=== PATIENT | female | born 1990 | race Caucasian/White ===

== ENCOUNTER 2017-10-24 21:43 | Inpatient (IN) | payer MEDICAID ==
[2017-10-25 01:31] LABS: ADD MAN DIFF? NO
[2017-10-25 01:35] LABS: WHITE BLOOD COUNT 14.7 10^3/ul (4.8-10.8)
[2017-10-25 01:35] LABS: BASOPHILS % 0.3 % (0.0-2.0); EOSINOPHILS % 0.1 % (0.0-7.0); HEMATOCRIT 36.3 % (37.0-47.0); HEMOGLOBIN 12.1 g/dl (12.0-16.0); LYMPHOCYTES # 1.8 10^3/ul (0.8-2.9); LYMPHOCYTES % 11.9 % (15.0-51.0); MEAN CORPUSCULAR HGB CONC 33.3 g/dl (32.0-37.0); MEAN CORPUSCULAR VOLUME 93.1 fl (82.0-101.0); MEAN PLATELET VOLUME 9.4 fl (7.4-10.4); MONOCYTE # 0.8 10^3/ul (0.3-0.9); MONOCYTES % 5.2 % (0.0-11.0); NEUTROPHIL # 12.1 10^3/ul (1.6-7.5); NEUTROPHILS % 82.1 % (39.0-77.0); PLATELET COUNT 286 10^3/UL (140-415); RED CELL DISTRIBUTION WIDTH 12.4 % (11.5-14.5)
[2017-10-25] MEDS ORDERED: ONDANSETRON 4 MG INJ ×2 (01:53→06:46)
[2017-10-25 01:54] LABS: ANION GAP 15 (8-16); BLOOD UREA NITROGEN 8 mg/dl (7-20); CALCIUM 9.4 mg/dl (8.4-10.2); CARBON DIOXIDE 26 mmol/L (21-31); CHLORIDE 103 mmol/L (97-110); CREATININE 0.62 mg/dl (0.44-1.00); GLUCOSE 105 mg/dl (70-220); POTASSIUM 4.2 mmol/L (3.5-5.1); SODIUM 140 mmol/L (135-144)
[2017-10-25] MEDS: ONDANSETRON 4 MG INJ IM (02:28)
[2017-10-25] MEDS ORDERED: ACETAMINOPHEN 500 MG TAB PO (03:50)
[2017-10-25] MEDS: CLINDAMYCIN 900 MG/D5W (PMX) 50 ML IVPB ×2 (05:18→07:00)
[2017-10-25] MEDS ORDERED: MIDAZOLAM 1 MG/ML 2 ML INJ (05:20)
[2017-10-25] MEDS ORDERED: FENTAnyl 50 MCG/ML VIAL (05:20)
[2017-10-25] MEDS ORDERED: PHENYLephrine (100 MCG/ML) 5ML SYG (05:27)
[2017-10-25] MEDS: GENTAMICIN 80 MG/NS (PMX) 50 ML IVPB ×3 (05:30→20:43)
[2017-10-25] MEDS ORDERED: LIDOCAINE 2% (SDV) 5 ML INJ (06:41)
[2017-10-25] MEDS ORDERED: PROPOFOL 20 ML (06:41)
[2017-10-25] MEDS ORDERED: morphine 10 MG INJ (06:42)
[2017-10-25] MEDS ORDERED: CLINDAMYCIN 600 MG/D5W (PMX) 50 ML IVPB (06:46)
[2017-10-25] MEDS ORDERED: MEPERIDINE 25 MG INJ IV (07:00)
[2017-10-25] MEDS ORDERED: HYDROmorphONE 1 MG/5 ML IV SYRINGE IV ×2 (07:00)
[2017-10-25] MEDS ORDERED: FENTAnyl 50 MCG/ML VIAL IV (07:00)
[2017-10-25] MEDS ORDERED: DIPHENHYDRAMINE 50 MG INJ IV (07:00)
[2017-10-25] MEDS ORDERED: HYDROCODONE/APAP (5/325) TAB PO (07:00)
[2017-10-25] MEDS ORDERED: METOCLOPRAMIDE 10 MG INJ IV (07:00)
[2017-10-25] MEDS ORDERED: SCOPOLAMINE 1.5 MG PATCH (07:01)
[2017-10-25] MEDS: ONDANSETRON 4 MG INJ IV ×2 (08:10→12:18)
[2017-10-25] MEDS: LACTATED RINGER'S 1,000 ML IV ×2 (09:30→18:42)
[2017-10-25 13:53] LABS: ADD MAN DIFF? NO
[2017-10-25 13:55] LABS: WHITE BLOOD COUNT 10.3 10^3/ul (4.8-10.8)
[2017-10-25 13:55] LABS: BASOPHILS % 0.2 % (0.0-2.0); HEMATOCRIT 27.8 % (37.0-47.0); HEMOGLOBIN 9.1 g/dl (12.0-16.0); LYMPHOCYTES % 10.1 % (15.0-51.0); MEAN CORPUSCULAR HEMOGLOBIN 31.1 pg (29.0-33.0); MEAN CORPUSCULAR HGB CONC 32.7 g/dl (32.0-37.0); MEAN CORPUSCULAR VOLUME 94.9 fl (82.0-101.0); MEAN PLATELET VOLUME 9.4 fl (7.4-10.4); MONOCYTE # 0.7 10^3/ul (0.3-0.9); MONOCYTES % 6.4 % (0.0-11.0); NEUTROPHIL # 8.6 10^3/ul (1.6-7.5); NEUTROPHILS % 82.7 % (39.0-77.0); PLATELET COUNT 204 10^3/UL (140-415); RED BLOOD COUNT 2.93 10^6/ul (4.20-5.40); RED CELL DISTRIBUTION WIDTH 12.6 % (11.5-14.5)
[2017-10-25] MEDS ORDERED: ACETAMINOPHEN 1000MG/100ML IV 100 ML IVPB (16:00)
[2017-10-25] MEDS: IOHEXOL 300MG/ML 150 ML BTL (18:18)
[2017-10-25] MEDS: SOD CHLORIDE 0.9% 100 ML (18:18)
[2017-10-26] MEDS: LACTATED RINGER'S 1,000 ML IV ×2 (06:00→13:30)
[2017-10-26] MEDS: GENTAMICIN 80 MG/NS (PMX) 50 ML IVPB ×2 (07:31→14:49)
[2017-10-26] MEDS: IOHEXOL 14.3 MG(I)/ML (ADULT) BTL PO (09:12)
[2017-10-26] MEDS: SOD CHLORIDE 0.9% 100 ML (13:01)
[2017-10-26] MEDS: IOHEXOL 300MG/ML 150 ML BTL (13:04)
[2017-10-26] MEDS: IOHEXOL 300MG/ML 30 ML BTL (13:06)
[2017-10-26 14:27] LABS: GENTAMICIN,TROUGH 1.2 ug/ml (1.0-2.0)
== END 2017-10-26 23:15 | disposition home or self-care (01) | DRG 761 ==
LOC: FTE 21:43 → SDS 10-25 06:33 → REC 10-25 07:13 → 2NE 10-25 08:20
PROC: 0UQG7ZZ Repair Vagina, Via Natural or Artificial Opening (ICD-10-PCS; principal; 2017-10-25 05:00)
DX: S31.41XA Laceration without foreign body of vagina and vulva, initial encounter (principal); X58.XXXA Exposure to other specified factors, initial encounter; K66.8 Other specified disorders of peritoneum; R10.30 Lower abdominal pain, unspecified; R11.0 Nausea
CPT/HCPCS: 74176; 74177; 80048; 80170; 84703; 85025; 86850; 86900; 86901; 96372; 96374; 99285-25